=== PATIENT | male | born 1995 | race Caucasian/White ===

== ENCOUNTER 2017-07-03 14:21 | Emergency (ER) | payer OTHER ==
[~2017-07-03] VITALS: Ht 175.3 cm; Wt 61.3 kg
[2017-07-03 14:32] VITALS: BP 113/72
[2017-07-03] MEDS ORDERED: ONDANSETRON 2MG/ML, 2ML IVPush ONE (15:30)
[2017-07-03] MEDS ORDERED: SODIUM CHLORIDE 0.9% 1,000ML IVBOLUS ONE (15:30)
[2017-07-03] MEDS ORDERED: SODIUM CHLORIDE FLUSH 10ML SYR IVF ONE (15:30)
[2017-07-03 15:53] LABS: HEMATOCRIT 53.1 % (39.2-51.8); HEMOGLOBIN 18.1 g/dL (13.7-18.0); WHITE BLOOD COUNT 16.8 x10^3/uL (4.5-13.2)
[2017-07-03 16:05] LABS: BLOOD UREA NITROGEN 16 mg/dL (7-18)
== END 2017-07-03 17:18 | disposition left against medical advice (07) ==
LOC: ED 17:12
DX: R11.10 Vomiting, unspecified (principal); R10.9 Unspecified abdominal pain
CPT/HCPCS: 36415; 80048; 82040; 83690; 85025; 99284